=== PATIENT | male | born 1975 | race Caucasian/White ===

== ENCOUNTER 2019-04-03 14:54 | Emergency (ER) | payer OTHER ==
[~2019-04-03] VITALS: Ht 182.9 cm; Wt 102.1 kg
[2019-04-03] MEDS ORDERED: DIOVAN160 MG PO (15:13)
[2019-04-03] MEDS ORDERED: NAPROSYN500 MG PO (17:11)
[2019-04-03 17:38] VITALS: BP 139/90
== END 2019-04-03 17:39 | disposition home or self-care (01) ==
LOC: ER 14:54
DX: S61.313A Laceration without foreign body of left middle finger with damage to nail, initial encounter (principal); I10 Essential (primary) hypertension; W23.1XXA Caught, crushed, jammed, or pinched between stationary objects, initial encounter; Y92.89 Other specified places as the place of occurrence of the external cause; Y93.89 Activity, other specified; Y99.8 Other external cause status